=== PATIENT | female | born 1995 | race Caucasian/White ===

== ENCOUNTER → 2017-10-26 15:11 | Outpatient (CLI) | payer OTHER, SELFPAY ==
[2017-10-28 14:28] LABS: HPV Reflexed? NOT INDICATED
== END ==
PROVIDERS: Family Provider Family Medicine; PCP Family Medicine; Visit Provider Nurse Practitioner Women's Health
DX: N89.8 Other specified noninflammatory disorders of vagina (principal); Z12.4 Encounter for screening for malignant neoplasm of cervix
CPT/HCPCS: 87070; 87077; 87205; 88175; G0145

== ENCOUNTER → 2017-11-26 09:02 | Outpatient (CLI) | payer OTHER, SELFPAY ==
--- NOTE | 2017-11-26 09:03 | US_ITS ---
STUDY: ULTRASOUND OF THE FEMALE PELVIS - COMPLETE REASON FOR EXAM: Female, 22 years old. Irregular periods LMP: 10/28/2017 TECHNIQUE: Transabdominal and Transvaginal TECHNICAL QUALITY: Adequate. COMPARISON: None. FINDINGS: The uterus is anteverted and is in a midline position. The uterus measures 7.6 x 4.8 x 4.9 cm. Normal uterine cervix. The endometrium measures 6.9 mm in thickness, and is hyperechoic. There is no demonstrated endometrial mass. Within the endometrial cavity at the level of the uterine fundus there is a 5.7 x 3.1 x 2.3 mm well-circumscribed round anechoic focus. The right ovary is visualized. The right ovary measures 3.2 x 2.4 x 2.0 cm. There is no right ovarian cyst or ovarian mass. There is no visualized right adnexal mass or complex lesion. There is normal arterial and normal venous vascularity. The left ovary is visualized. The left ovary measures 3.7 x 2.4 x 2.0 cm. There is no left ovarian cyst or ovarian mass. There is a 4.5 x 3.8 x 2.8 mm well-circumscribed echogenic rounded focus within the left ovary which may reflect underlying calcification. Is normal arterial and normal venous vascularity. There is minimal fluid in the cul-de-sac. Polycystic ovary disease: No. US/Pelvic (Non ) IMPRESSION: Cystic focus within the endometrial cavity which may reflect an underlying gestational sac or possible endometrial cyst. Electronically Signed: Sherley Hanley MD at 23:15 EDT Tel , Service support ,
--- NOTE | 2017-11-26 09:03 | US_ITS ---
STUDY: ULTRASOUND OF THE FEMALE PELVIS - COMPLETE REASON FOR EXAM: Female, 22 years old. Irregular periods LMP: 10/28/2017 TECHNIQUE: Transabdominal and Transvaginal TECHNICAL QUALITY: Adequate. COMPARISON: None. FINDINGS: The uterus is anteverted and is in a midline position. The uterus measures 7.6 x 4.8 x 4.9 cm. Normal uterine cervix. The endometrium measures 6.9 mm in thickness, and is hyperechoic. There is no demonstrated endometrial mass. Within the endometrial cavity at the level of the uterine fundus there is a 5.7 x 3.1 x 2.3 mm well-circumscribed round anechoic focus. The right ovary is visualized. The right ovary measures 3.2 x 2.4 x 2.0 cm. There is no right ovarian cyst or ovarian mass. There is no visualized right adnexal mass or complex lesion. There is normal arterial and normal venous vascularity. The left ovary is visualized. The left ovary measures 3.7 x 2.4 x 2.0 cm. There is no left ovarian cyst or ovarian mass. There is a 4.5 x 3.8 x 2.8 mm well-circumscribed echogenic rounded focus within the left ovary which may reflect underlying calcification. Is normal arterial and normal venous vascularity. There is minimal fluid in the cul-de-sac. Polycystic ovary disease: No. US/Transvaginal Non- IMPRESSION: Cystic focus within the endometrial cavity which may reflect an underlying gestational sac or possible endometrial cyst. Electronically Signed: Sherley Hanley MD at 23:15 EDT Tel , Service support ,
== END ==
LOC: US 09:02
PROVIDERS: Family Provider Family Medicine; PCP Family Medicine; Visit Provider Nurse Practitioner Women's Health
DX: N92.6 Irregular menstruation, unspecified (principal)
CPT/HCPCS: 76830; 76856; 93976

== ENCOUNTER → 2018-08-07 17:47 | Outpatient (CLI) | payer OTHER, SELFPAY ==
[2018-08-07 14:33] VITALS: BMI 30.9
[2018-08-07 22:48] LABS: Chlamydia Trachomatis by PCR Negative (Negative); Neisserai gonorrhoeae by PCR Negative (Negative); Probe Check PASS; Sample Adequacy Control PASS; Specimen Processing Control PASS
== END ==
PROVIDERS: Family Provider Family Medicine; PCP Family Medicine; Referring Provider Nurse Practitioner Women's Health; Visit Provider Nurse Practitioner Women's Health
DX: Z34.90 Encounter for supervision of normal pregnancy, unspecified, unspecified trimester (principal)
CPT/HCPCS: 87086; 87088; 87491; 87591

== ENCOUNTER → 2018-09-01 10:10 | Outpatient (CLI) | payer OTHER, SELFPAY ==
[2018-08-07 14:33] VITALS: BMI 30.9
[2018-09-01 12:29] LABS: Absolute Lymphocyte Count 2.42 X10^3/ul (0.83-4.51); Absolute Neutrophil Count 5.8 X10^3/uL (2.0-7.7); Basophil# 0.02 X10^3/uL; Basophil% 0.2 % (0-1); Eosinophil# 0.15 X10^3/uL; Eosinophils% 1.7 % (0-5); Hematocrit 39.5 % (37-47); Hemoglobin 13.6 g/dl (12.0-15.0); Lymphocyte # 2.42 X10^3/ul (4.0); Lymphocyte % 26.7 % (19-41); Mean Corp Hgb Conc 34.4 g/gl (32-36); Mean Corpuscular Hgb 31.5 pg (27.0-32.0); Mean Corpuscular Volume 91.4 fL (81-99); Mean Platelet Vol. 10.1 fl (6.2-12.0); Monocyte% 6.6 % (0-10); Neutrophil # 5.84 X10^3/uL (2.7-7.7); Neutrophil % 64.5 % (47-70); Platelet Count 284 K/mm3 (150-450); RBC Distribution Width CV 12.8 % (11.6-14.6); RBC Distribution Width SD 42.2 fl (35.1-43.9); Red Blood Count 4.32 M/mm3 (4.2-5.4); White Blood Count 9.1 K/mm3 (4.4-11.0)
[2018-09-01 12:37] LABS: POSITIVE COUNT NO; POSITIVE DIFFERENTIAL NO; POSITIVE MORPHOLOGY NO
[2018-09-01 14:52] LABS: HIV - WCH Non-Reactive (Nonreactive); Rubella IgG 48.5 IU/mL
[2018-09-03 10:02] LABS: HEPATITIS B SURFACE AG Negative (Negative)
[2018-09-08 01:31] LABS: Rapid Plasmin Reagin (RPR) NONREACTIVE (NONREACTIVE)
== END ==
PROVIDERS: Family Provider Family Medicine; PCP Family Medicine; Referring Provider Nurse Practitioner Women's Health; Visit Provider Nurse Practitioner Women's Health
DX: Z34.90 Encounter for supervision of normal pregnancy, unspecified, unspecified trimester (principal)
CPT/HCPCS: 85025; 86592; 86703; 86762; 86850; 86900; 87340

== ENCOUNTER → 2018-10-13 | Outpatient (CLI) | payer OTHER, SELFPAY ==
[2018-10-13 14:36] VITALS: BMI 30.9
== END | disposition home or self-care (01) ==
PROVIDERS: Family Provider Family Medicine; PCP Family Medicine; Referring Provider Obstetrics & Gynecology; Visit Provider Obstetrics & Gynecology
DX: R10.2 Pelvic and perineal pain (principal)
CPT/HCPCS: 87086; 87088

== ENCOUNTER → 2019-02-05 | Outpatient (CLI) | payer OTHER, SELFPAY ==
[2019-01-23 08:38] VITALS: BMI 30.9
--- NOTE | 2019-02-05 07:59 | US_ITS ---
STUDY: SECOND AND THIRD TRIMESTER OBSTETRICAL ULTRASOUND REASON FOR EXAM: Female, 23 years old. Routine survey. LMP: June 20, 2018. TECHNIQUE: Transabdominal TECHNICAL QUALITY: Adequate. PRIOR ULTRASOUND: None. FINDINGS: There is a single intrauterine fetus. The fetus is in a cephalic presentation. There is demonstrated cardiac activity with a heart rate of 142 bpm. There is a normal amniotic fluid volume. The largest amniotic fluid pocket measures 4.2 cm. The amniotic fluid index (RANJIT) is 13.7 cm. The placenta is posterior in location and is not low lying. There are Grade 1 placental changes. The cervix measures 4.2 cm in length. The bilateral adnexal regions are normal. BIOMETRY: BPD: 8.12 cm: 32 weeks, 5 days HC: 30.49 cm: 34 weeks, 0 days AC: 28.61 cm: 32 weeks, 5 days FL: 6.31 cm: 32 weeks, 5 days CI: 77% FL/BPD: 78% FL/HC: FL/AC: 22% HC/AC: 1.07 age by current US: 33 weeks, 1 days. HEYDI by current US: March 25, 2019. Estimated weight: 2045 grams, +/- 2099 grams, 38 %. Age by LMP: 32 weeks, 6 days. HEYDI by LMP: March 27, 2019. US/OB Limited With Biometrics IMPRESSION: Single live intrauterine gestation with a mean gestational age of 33 weeks and 1 day. Electronically Signed: Benoit Boyd, at 14:24 EDT , Service support ,
== END | disposition home or self-care (01) ==
PROVIDERS: Family Provider Family Medicine; PCP Family Medicine; Referring Provider Obstetrics & Gynecology; Visit Provider Obstetrics & Gynecology
DX: O24.419 Gestational diabetes mellitus in pregnancy, unspecified control (principal); Z3A.00 Weeks of gestation of pregnancy not specified
CPT/HCPCS: 76816

== ENCOUNTER → 2019-02-26 | Outpatient (CLI) | payer OTHER, SELFPAY ==
[2019-02-06 08:37] VITALS: BMI 30.9
[2019-02-20 09:15] VITALS: BMI 30.9
--- NOTE | 2019-02-26 09:05 | US_ITS ---
STUDY: SECOND AND THIRD TRIMESTER OBSTETRICAL ULTRASOUND REASON FOR EXAM: Female, 23 years old. Routine survey. LMP: June 20, 2018. TECHNIQUE: Transabdominal TECHNICAL QUALITY: Adequate. PRIOR ULTRASOUND: Comparison is made with prior study dated February 05, 2019. FINDINGS: There is a single intrauterine fetus. The fetus is in a cephalic presentation. There is demonstrated cardiac activity with a heart rate of 147 bpm. There is a normal amniotic fluid volume. The largest amniotic fluid pocket measures 3.2 cm. The amniotic fluid index (RANJIT) is 11.73 cm. The placenta is posterior in location and is not low lying. There are Grade 1 placental changes. The cervix measures 3.7 cm in length. The bilateral adnexal regions are normal. BIOMETRY: BPD: 8.65 cm: 35 weeks, 0 days HC: 31.32 cm: 30 weeks, 1 days AC: 31.64 cm: 35 weeks, 4 days FL: 6.79 cm: 35 weeks, 0 days CI: 82% FL/BPD: 78% FL/HC: FL/AC: 21% HC/AC: 0.99 age by current US: 35 weeks, 2 days. HEYDI by current US: March 31, 2019. Estimated weight: 2635 grams, +/- 385 grams, 34 %. age by prior US: 37 weeks, 1 days. HEYDI by prior US: March 25, 2019. Age by LMP: 35 weeks, 6 days. HEYDI by LMP: March 27, 2019. Low-level echoes are seen within the stomach. US/OB Limited With Biometrics IMPRESSION: Single live intrauterine gestation with a mean gestational age of 36 weeks and 1 day. The measurements obtained today fall within the normal expected range. Electronically Signed: Benoit Boyd, at 15:34 EDT , Service support ,
== END | disposition home or self-care (01) ==
PROVIDERS: Family Provider Family Medicine; PCP Family Medicine; Referring Provider Obstetrics & Gynecology; Visit Provider Obstetrics & Gynecology
DX: O24.419 Gestational diabetes mellitus in pregnancy, unspecified control (principal); Z3A.00 Weeks of gestation of pregnancy not specified
CPT/HCPCS: 76816

== ENCOUNTER → 2019-02-27 | Outpatient (CLI) | payer OTHER, SELFPAY ==
[2019-02-27 09:27] VITALS: BMI 30.9
== END | disposition home or self-care (01) ==
LOC: LABSPEC 13:18
PROVIDERS: Family Provider Family Medicine; PCP Family Medicine; Referring Provider Obstetrics & Gynecology; Visit Provider Obstetrics & Gynecology
DX: Z34.93 Encounter for supervision of normal pregnancy, unspecified, third trimester (principal); Z3A.36 36 weeks gestation of pregnancy
CPT/HCPCS: 87081

== ENCOUNTER → 2019-03-15 | Outpatient (CLI) | payer OTHER, SELFPAY ==
[2019-03-13 08:39] VITALS: BMI 32.9
--- NOTE | 2019-03-15 14:38 | US_ITS ---
STUDY: SECOND AND THIRD TRIMESTER OBSTETRICAL ULTRASOUND - LIMITED REASON FOR EXAM: Female, 23 years old. Routine survey. LMP: June 20, 2018. PRIOR ULTRASOUND: Comparison is made with prior study dated February 26, 2019. TECHNIQUE: Transabdominal TECHNICAL QUALITY: Adequate. FINDINGS: There is a single intrauterine fetus. The fetus is in a cephalic presentation. There is demonstrated cardiac activity with a heart rate of 135 bpm. There is a normal amniotic fluid volume. The largest amniotic fluid pocket measures 4.7 cm x 3.8 cm. The amniotic fluid index (RANJIT) is 12.57 cm. The placenta is posterior in location and is not low lying. There are Grade 1 placental changes. The cervix measures 3.25 cm in length. BIOMETRY: BPD: 8.91 cm: 36 weeks, 1 days HC: 32.34 cm: 36 weeks, 4 days AC: 30.78 cm: 34 weeks, 6 days FL: 11.24 cm: 37 weeks, 3 days Age by LMP: 38 weeks, 2 days. HEYDI by LMP: March 27, 2019. age by prior US: 38 weeks, 4 days. HEYDI by prior US: March 25, 2019. age by current US: 36 weeks, 1 days. HEYDI by current US: April 11, 2019. Estimated weight: 2724 grams, +/- 398 grams, 9 percentile. Measurements of the abdominal circumference are questionable. I suggest the patient return for reassessment of the abdominal circumference. Echogenic material is seen within the stomach. US/OB Limited With Biometrics IMPRESSION: Repeat measurement of the abdominal circumference is recommended. Echogenic material seen within the stomach. Electronically Signed: Benoit Boyd, at 8:28 EDT , Service support ,
== END | disposition home or self-care (01) ==
LOC: US 14:22
PROVIDERS: Family Provider Family Medicine; PCP Family Medicine; Referring Provider Obstetrics & Gynecology; Visit Provider Obstetrics & Gynecology
DX: O66.0 Obstructed labor due to shoulder dystocia (principal); Z3A.00 Weeks of gestation of pregnancy not specified
CPT/HCPCS: 76816

== ENCOUNTER 2019-03-16 16:20 | Inpatient (IN) | payer OTHER, SELFPAY ==
[2018-12-26 08:31] VITALS: BMI 30.9
[2019-03-13 10:26] VITALS: BMI 30.9
[2019-03-16 16:37] VITALS: BMI 32.8
[2019-03-16] MEDS: Lactated Ringers 1,000 ML 50 ML IV (17:10)
[2019-03-16] MEDS: Lactated Ringers 500 ML 999 ML IV (17:18)
[2019-03-16 18:04] LABS: Absolute Lymphocyte Count 2.32 X10^3/uL (0.83-4.51); Absolute Neutrophil Count 9.4 X10^3/uL (2.0-7.7); Basophil# 0.02 X10^3/uL; Basophil% 0.2 % (0-1); Eosinophil# 0.11 X10^3/uL; Eosinophils% 0.9 % (0-5); Hematocrit 36.2 % (37-47); Hemoglobin 12.2 g/dL (12.0-15.0); Lymphocyte # 2.32 X10^3/ul (4.0); Mean Corp Hgb Conc 33.7 g/dL (32-36); Mean Corpuscular Hgb 30.4 pg (27.0-32.0); Mean Corpuscular Volume 90.3 fL (81-99); Mean Platelet Vol. 9.6 fl (6.2-12.0); Monocyte% 7.8 % (0-10); NRBC Flagged by Analyzer 0 % (0-5); Neutrophil # 9.39 X10^3/uL (2.7-7.7); Neutrophil % 72.6 % (47-70); Platelet Count 279 K/mm3 (150-450); RBC Distribution Width CV 13.5 % (11.6-14.6); RBC Distribution Width SD 44.4 fl (35.1-43.9); Red Blood Count 4.01 M/mm3 (4.2-5.4); White Blood Count 12.9 K/mm3 (4.4-11.0)
[2019-03-16 18:21] LABS: Bedside Glucose 89 mg/dL (70-110)
[2019-03-16 18:21] LABS: Bedside Glucose 102 mg/dL (70-110)
[2019-03-16] MEDS: Oxytocin 30 units/NS 500 ml 30 UNITS/500 ML IV.SOLN 334 UNITS IV (20:05)
--- NOTE | 2019-03-16 20:37 | PCM.HP.OB ---
- Problem List (1) SROM (spontaneous rupture of membranes) Status: Acute (2) Shoulder dystocia during labor and delivery Status: Acute Comment: plan primary at 39 weeks 03/20 at noon if EFW is similar clinically to previous SD infant. will decide base on cervical exam and EFW. (3) Gestational diabetes mellitus Status: Acute Qualifiers: Gestational diabetes mellitus control: diet-controlled Trimester: third trimester Qualified Code(s): O24.410 - Gestational diabetes mellitus in , diet controlled Comment: checking BS QID, nutrition consult, 36 week US (4) Status: Acute Qualifiers: Weeks of gestation: 37 weeks Qualified Code(s): Z3A.37 - 37 weeks gestation of Comment: genetic NTD and carrier screenign declined. nl anatomy us. (5) Supervision of high risk , antepartum Status: Acute Comment: PRR HEYDI: 03/27/19 girl Rocio PC:Baldomero Spouse: Gilles (6) History of pre-eclampsia in prior , currently Status: Acute Comment: start daily ASA at 12 weeks/encouraged (7) Acid reflux Status: Acute Qualifiers: Esophagitis presence: without esophagitis Qualified Code(s): K21.9 - Gastro-esophageal reflux disease without esophagitis History Date of Admission: 03/16/19 Final HEYDI: 03/16/19 Gestational age: 40 Weeks and 0 Days History of this : This is a 23 year-old, at 38 weeks gestational age presents IAL SROM clear fluid. She has had well-controlled GDM A1 diabetes and estimated weight today with maternal- medicine was 6 pounds 7 ounces some echogenic material in the stomach seen but no gross masses or abnormalities. MFM agreed with recommendation for trial of labor after patient was adequately counseled regarding the risk benefits and alternatives of primary versus trial of labor with a history of shoulder dystocia. This infant has an estimated weight that is 2-1/2 pounds less than her first child. Medical History: Medical History (Last Reviewed 03/13/19 @ 08:39 by Rupa Kaur) Acid reflux (Acute) K21.9 Peptic ulcer K27.9 Surgical History: Surgical History (Last Reviewed 03/13/19 @ 08:39 by Rupa Kaur) History of tonsillectomy Z90.89 teeth extracted Allergies oxycodone [From Percocet] Adverse Reaction (Verified 03/13/19 08:39) Upset Stomach Home Medications: Home Medications docosahexanoic acid 200 mg capsule 200 mg PO DAILY cap 08/07/18 Blood Sugar Diagnostic [Blood Glucose Test] See Rx Instructions .ROUTE .MEDSUPPLY 03/16/19 Blood-Glucose Meter [Contour] See Rx Instructions .ROUTE .MEDSUPPLY 03/16/19 Vit,Calc76/Iron/Folic [Pnv 29-1 Tablet] 1 ea PO DAILY 03/16/19 Smoking Status: Current every day smoker Alcohol: None Number of Fetus(es): 1 NST - FHR Rate Baby A Baseline: 140 Variability:: Moderate Accelerations:: 15 x 15 Decelerations:: None NST Reactive:: Yes FHR Category:: Category I Uterine Activity:: q2-3 History Past Pregnancies: Past Pregnancies previous term shoulder dystocia no sequelae male gdma1 8 lbs 14 ounces Labs: Mom's Labs & Results 03/16/19 03/16/19 03/16/19 17:09 17:10 17:10 WBC 12.9 H RBC 4.01 L Hgb 12.2 Hct 36.2 L MCV 90.3 MCH 30.4 MCHC 33.7 RDW Std Deviation 44.4 H RDW Coeff of Yoan 13.5 Plt Count 279 MPV 9.6 Immature Gran % (Auto) 0.500 Neut % (Auto) 72.6 H Lymph % (Auto) 18.0 L Boundary % (Auto) 7.8 Eos % (Auto) 0.9 Baso % (Auto) 0.2 Absolute Neuts (auto) 9.4 H Absolute Lymphs (auto) 2.32 Nucleated RBC % 0 POC Glucose 89 Blood Type O POSITIVE Antibody Screen NEGATIVE 03/16/19 18:11 WBC RBC Hgb Hct MCV MCH MCHC RDW Std Deviation RDW Coeff of Yoan Plt Count MPV Immature Gran % (Auto) Neut % (Auto) Lymph % (Auto) Boundary % (Auto) Eos % (Auto) Baso % (Auto) Absolute Neuts (auto) Absolute Lymphs (auto) Nucleated RBC % POC Glucose 102 Blood Type Antibody Screen Course Did the patient receive Yes care? Labs Blood Type: O RH: POSITIVE RPR/VDRL/Syphilis Nonreactive Rubella status Immune HbSAg Negative Date Done: 09/01/18 Chlamydia Negative Gonorrhea Negative HIV/AIDS Non-Reactive Group B Strep: Negative Current Obstetrical History Gestational Diabetes Yes Incompetent Cervix No Infertility No IUGR No Macrosomia No Hypertension/Pre-eclampsia No Placenta Previa/Abruption No PTL/PROM No Uterine anomaly No Oligohydramnios No Polyhydramnios No Multiple gestation No Past Medical History Asthma No Diabetes No Hypertension No Heart disease No Mitral valve prolapse No Neurologic/Seizure disorder/ No Migraines Kidney disease No Liver disease No Varicosities No Clotting disorders/Hx of DVT No Thyroid Dysfunction No Other medical diseases No Psychiatric disorders No Major trauma No Abnormal PAP smear No Sleep apnea No Mammogram in the last 2 years No Social History Marital Status: Alleged father Gilles Hx Smoking Yes Smoking Status Current every day smoker Expected Delivery Method: Spontaneous Vaginal Review of Systems Constitutional: Denies: Fever, Malaise Eyes: Denies: Blurred vision, Vision Change HEENT: Denies: Head Aches, Visual Changes Cardiovascular: Denies: Chest Pain, Palpitations Respiratory: Denies: Cough, Shortness of Breath, Wheezing Gastrointestinal: Denies: Abdominal Pain, Diarrhea, Nausea, Vomiting Genitourinary: Denies: Dysuria, Hematuria Musculoskeletal: Denies: Joint Pain, Muscle pain Skin: Denies: Lesions, Rash Neurological: Denies: Blurred vision, Focal weakness, Headaches Psychiatric: Denies: Anxiety, Depression Endocrine: Denies: Heat/ Cold Intolerance Hematologic/ Lymphatic: Denies: Easy Bruising, Easy Bleeding Physical Exam General: Alert, Cooperative, No apparent distress HEENT: Atraumatic, Normocephalic. Negative for: Thyromegaly, Lymphadenopathy Cardiovascular: Regular rate Lungs: Normal air movement Abdomen: Soft, Non Tender, Gravid Neurological: Deep Tendon Reflexes 2+/4 and Symmetrical, Neuro grossly intact. Negative for: Clonus ADULT EDUCATION PROFESSIONAL: Normal external genitalia. Negative for: Vulvar lesions Estimated gestational size: Appropriate for gestational size Presentation: Cephalic Assessment/Plan All Active Problems (Last Reviewed 03/13/19 @ 08:39 by Rupa Kaur) SROM (spontaneous rupture of membranes) (Acute) Shoulder dystocia during labor and delivery (Acute) Gestational diabetes mellitus (Acute) (Acute) Supervision of high risk , antepartum (Acute) History of pre-eclampsia in prior , currently (Acute) Acid reflux (Acute) History of gestational diabetes in prior , currently (Resolved) This is a 23 year-old, , at 38 weeks gestational age presents IAL. ial srom clear fluid epi if desired patient counseled and wishes to proceed with trial of labor
--- NOTE | 2019-03-16 20:38 | PCM.OPRPT ---
Problem List (1) Acid reflux Status: Acute Qualifiers: Esophagitis presence: without esophagitis Qualified Code(s): K21.9 - Gastro-esophageal reflux disease without esophagitis (2) Gestational diabetes mellitus Status: Acute Qualifiers: Gestational diabetes mellitus control: diet-controlled Trimester: third trimester Qualified Code(s): O24.410 - Gestational diabetes mellitus in , diet controlled Comment: checking BS QID, nutrition consult, 36 week US (3) History of pre-eclampsia in prior , currently Status: Acute Comment: start daily ASA at 12 weeks/encouraged (4) Status: Acute Qualifiers: Weeks of gestation: 37 weeks Qualified Code(s): Z3A.37 - 37 weeks gestation of Comment: genetic NTD and carrier screenign declined. nl anatomy us. (5) Shoulder dystocia during labor and delivery Status: Acute Comment: plan primary at 39 weeks 03/20 at noon if EFW is similar clinically to previous SD infant. will decide base on cervical exam and EFW. (6) Supervision of high risk , antepartum Status: Acute Comment: PRR HEYDI: 03/27/19 girl Rocio PC:Baldomero Spouse: Gilles Report of Operation Date of Procedure: 03/16/19 Pre-Operative Diagnosis: ial srom Post-Operative Diagnosis: same Surgery/Procedure Performed:: Vaginal Delivery Maternal Presentation: Active Labor ial 38 weeks Amniotic Membrane Rupture Type: Spontaneous at home Amniotic Fluid Description: Clear Final HEYDI: 03/27/19 Gestational age: 38 Weeks and 3 Days Date of Procedure: 03/16/19 Pre-Operative Diagnosis: gdma1 Post-Operative Diagnosis: same Surgery/ Procedure Performed: Spontaneous Vaginal Delivery Type of Anesthesia: None Description of Procedure: Patient proceeded to complete dilation with no anesthesia and delivered the head in the JAGUAR presentation with a loose nuchal cord x1 easily reduced over the infant's head in the anterior and posterior shoulders easily delivered followed by the rest the infant and was placed on the maternal abdomen clear delayed cord clamping was employed and placenta delivered spontaneously immediately following was to be intact with three-vessel cord with an abnormal implantation into the placenta within the middle with some spindly vessels coming off the placenta itself was noted to be smaller in size overall. EBL 100 cc no lacerations noted Presentation: JAGUAR Placental Delivery Description: Spontaneous Placenta Disposition: [facility] Cord Vessel Description: 3 Vessels Nuchal Cord Compression: Without compression Cord Entanglement: Around neck x 1, loose Estimated Blood Loss: 100 Infant A gender: Female Episiotomy Description: None Laceration: None Medications given after delivery: IV Pitocin Complications: None Multi Select Codes - Urinary/Genital Urinary/Genital CPT Codes: 16967 Vaginal Delivery [facility]
[2019-03-16] MEDS: Naproxen 250 MG Tablet 500 MG PO (21:08)
[2019-03-16 21:11] LABS: Bedside Glucose 100 mg/dL (70-110)
[2019-03-16 21:11] LABS: Bedside Glucose 86 mg/dL (70-110)
[2019-03-16] MEDS: 0.9% Saline Lock 10 ML Syringe IV (22:45)
[2019-03-17] VITALS (7 sets, daily range): BP systolic 114–123; BP diastolic 57–73; PULSE 70–86; RESP 16–18; TEMP 36.2–36.9; O2SAT 98
[2019-03-17 05:55] LABS: Bedside Glucose 85 mg/dL (70-110)
[2019-03-17] MEDS: Naproxen 250 MG Tablet 500 MG PO ×2 (07:44→15:56)
--- NOTE | 2019-03-17 08:45 | PCM.PN.OB ---
Patient Problems: Active and Suspected Problems (Last Reviewed 03/13/19 @ 08:39 by Rupa Kaur) SROM (spontaneous rupture of membranes) (Acute) Subjective: doing well no complaints pain controlled no CP SOB N V ambulating well tolerating po lochia moderate, going well - Physical Exam General: Alert, Oriented x3 Vital Signs Temp Pulse Resp BP Pulse Ox 98.5 F 76 16 114/68 98 03/17/19 07:36 03/17/19 07:36 03/17/19 07:36 03/17/19 07:36 03/17/19 07:36 Oxygen Delivery Method Room Air Weight: 191 lb 2.252 oz Body Mass Index (BMI) 32.8 Intake and Output for Last 24 Hours 03/15/19 03/16/19 03/17/19 23:59 23:59 23:59 Intake Total 1269.17 / 1269.17 Output Total 1000 / 1000 Balance 269.17 / 269.17 Laboratory Tests Past 24 Hrs 03/16/19 03/16/19 17:10 17:10 WBC 12.9 H RBC 4.01 L Hgb 12.2 Hct 36.2 L MCV 90.3 MCH 30.4 MCHC 33.7 RDW Std Deviation 44.4 H RDW Coeff of Yoan 13.5 Plt Count 279 MPV 9.6 Immature Gran % (Auto) 0.500 Neut % (Auto) 72.6 H Lymph % (Auto) 18.0 L Hernando % (Auto) 7.8 Eos % (Auto) 0.9 Baso % (Auto) 0.2 Absolute Neuts (auto) 9.4 H Absolute Lymphs (auto) 2.32 Nucleated RBC % 0 Blood Type O POSITIVE Antibody Screen NEGATIVE POC Glucose 03/17/19 03/16/19 03/16/19 05:51 21:02 19:25 POC Glucose 85 100 86 03/16/19 03/16/19 18:11 17:09 POC Glucose 102 89 Medical Necessity - Tobacco Use Smoking Status: Current every day smoker Assessment/Plan All Active Problems (Last Reviewed 03/13/19 @ 08:39 by Rupa Kaur) SROM (spontaneous rupture of membranes) (Acute) Shoulder dystocia during labor and delivery (Acute) Gestational diabetes mellitus (Acute) (Acute) Supervision of high risk , antepartum (Acute) History of pre-eclampsia in prior , currently (Acute) Acid reflux (Acute) History of gestational diabetes in prior , currently (Resolved) s/p PPD # 1 1. routine post delivery care 2. breast feeding- support given 3. rh positive 4. rubella immune diabetes- check 2 hour gtt at 6 weeks
--- NOTE | 2019-03-17 08:46 | DCINST_ITS ---
Discharge Diet: No Restrictions Discharge Activity: Return to Normal Activity, May not drive while taking narcotic pain medications., May Shower May resume sexual activity in: 4-6 weeks Call your doctor if your incision/area has: Continuous Slow Oozing, Sudden Increased Bleeding, Increased Pain/ Swelling, Increased Redness, Foul Smelling Discharge Additional Instructions: If you experience any of the following, contact your healthcare provider. * Bleeding that soaks a pad every hour for 2 hours * Fever 100.4 or higher * Unrelieved incision or abdominal pain * Swelling, redness, discharge or bleeding from your incision or episiotomy site * Your incision begins to separate * Problems urinating (including inability to urinate or burning while urinating). * Visual changes * Severe headache * Flu-like symptoms * Pain or redness in one of both of your breasts * Pain, warmth, tenderness or swelling in your legs, especially the calf area * Frequent nausea and vomiting * Symptoms of depression or anxiety If you experience any of the following, call 911 or go to the nearest Emergency Room. * Chest pain * Problems breathing * Seizure activity * Partial or complete paralysis of a body part, slurred speech, weakness or drooping of the face, or a sudden inability to walk or hold your balance Allergies/Adverse Reactions: Allergies oxycodone [From Percocet] Adverse Reaction (Verified 03/13/19 08:39) Upset Stomach Medications to take at Discharge docosahexanoic acid 200 mg capsule 200 mg PO DAILY cap 08/07/18 Blood Sugar Diagnostic [Blood Glucose Test] See Rx Instructions .ROUTE .MEDSUPPLY 03/16/19 Blood-Glucose Meter [Contour] See Rx Instructions .ROUTE .MEDSUPPLY 03/16/19 Vit,Calc76/Iron/Folic [Pnv 29-1 Tablet] 1 ea PO DAILY 03/16/19 Please Follow Up With: Olivia Zarco MD - [phone] When: Call to make an appointment with your doctor in 6 weeks. If you had elevated Blood pressure or 4th degree laceration you will need to be seen in 2 weeks. Primary Care Physician: Chris Barraza MD [Primary Care Provider] - Test Results: Test results from this visit will be discussed in further detail at your follow- up appointment, if applicable.
[2019-03-17] MEDS: Acetaminophen 500 MG Tablet 1000 MG PO (12:49)
== END 2019-03-17 21:50 | disposition home or self-care (01) | DRG 807 ==
PROVIDERS: Admitting Provider Obstetrics & Gynecology; Family Provider Family Medicine; PCP Family Medicine; Referring Provider Obstetrics & Gynecology; Visit Provider Obstetrics & Gynecology
DX: O24.420 Gestational diabetes mellitus in childbirth, diet controlled (principal); Z37.0 Single live birth; O99.334 Smoking (tobacco) complicating childbirth; O69.81X0 Labor and delivery complicated by cord around neck, without compression, not applicable or unspecified; Z3A.38 38 weeks gestation of pregnancy
CPT/HCPCS: 59025; 59050; 82962; 85025; 86850; 86900; 86901; 99218; J7120; A4216; G0378

== ENCOUNTER → 2020-01-23 | Outpatient (CLI) | payer OTHER, SELFPAY ==
[2020-01-15 10:31] VITALS: BMI 32.8
--- NOTE | 2020-01-23 14:03 | US_ITS ---
STUDY: ABDOMINAL ULTRASOUND - RIGHT UPPER QUADRANT REASON FOR VISIT: Female, 24 years old RUQ PAIN -- R/O CHOLECYSTITIS TECHNIQUE: Ultrasound evaluation of the right upper quadrant was performed with real-time and static palacios-scale imaging. TECHNICAL QUALITY: Adequate. COMPARISON: None. FINDINGS: Liver: The liver measures 14.6 cm. There is normal echogenicity of the liver. The bile ducts are within normal limits. There is hepatic color flow. The direction of portal flow is hepatopetal. There is no demonstrated mass lesion. Gallbladder: Normal distended gallbladder. The gallbladder wall measures 2.0 mm. There is a negative sonographic Luke''s sign. There is no pericholecystic fluid. There are no gallstones. Common Bile Duct (C.B.D.): The common bile duct measures 3.1 mm. Pancreas: Normal size of the head, body and tail of the pancreas. There is normal echogenicity of the pancreas. There is no demonstrated pancreatic mass or cyst. Right Kidney: Normal size of the right kidney. The right kidney measures 12.0 x 5.0 x 4.9 cm. Normal renal cortex. The right cortex measures 1.3 cm. There is no demonstrated renal mass or cyst. There is no right hydronephrosis. US/Abdomen Limited IMPRESSION: No suspicious sonographic findings Electronically Signed: Carlos A Calix MD at 14:47 EDT , Service support ,
== END | disposition home or self-care (01) ==
PROVIDERS: PCP Family Medicine; Referring Provider Nurse Practitioner; Visit Provider Nurse Practitioner
DX: R10.11 Right upper quadrant pain (principal)
CPT/HCPCS: 76705

== ENCOUNTER → 2020-12-03 08:09 | Outpatient (CLI) | payer MEDICAID, SELFPAY ==
[2020-01-15 10:31] VITALS: BMI 32.8
[2020-12-03 08:15] VITALS: BP 122/76; PULSE 97; RESP 16; TEMP 36.1; O2SAT 100
[2020-12-03] MEDS: Cosyntropin 0.25 MG Vial IM (08:47)
== END ==
PROVIDERS: PCP Family Medicine; Referring Provider Internal Medicine; Visit Provider Internal Medicine
DX: I95.9 Hypotension, unspecified (principal); R11.0 Nausea
CPT/HCPCS: 82533; 96372; J0834

== ENCOUNTER 2021-07-16 12:56 | Outpatient (CLI) | payer MEDICAID, SELFPAY ==
--- NOTE | 2021-07-16 13:17 | VDLE_ITS ---
Reason For Study: Pain RIGHT LEFT CFV is compressible, spontaneous, phasic, GSV is normal. competent and demonstrates normal CFV is compressible, spontaneous, phasic, augmentation. competent, and demonstrates normal Procedure augmentation. This is a venous duplex using B-mode, color FV is compressible, spontaneous, phasic, flow and spectral Doppler. competent and demonstrates normal Exam performed in department. augmentation. A preliminary report was called and/or faxed POP V is compressible, spontaneous, phasic, to Alber. competent and demonstrates normal augmentation. T/P Trunk is compressible. PTV is compressible. LT PerV is compressible. VL/Venous Duplex US, Unilateral Interpretation Summary Deep veins of the left lower extremity are patent and compressible segmentally. There is no evidence of left lower extremity deep vein thrombosis. Valvular competence appears intac t within the proximal deep venous system on the left . The left great saphenous vein appears patent a nd compressible segmentally. Ordering Physician: Anna Campo Referring Physician: Chris Barraza Performed By: Mili Meneses RVT
[2021-07-16 13:34] LABS: D-Dimer Quantitative (DVT/PE) <= 0.27 FEU/ug/m (0.27-0.49)
== END 2021-07-16 23:59 | disposition short-term general hospital (02) ==
PROVIDERS: PCP Family Medicine; Visit Provider Internal Medicine
DX: M79.662 Pain in left lower leg (principal); M79.89 Other specified soft tissue disorders; R06.02 Shortness of breath
CPT/HCPCS: 85379; 93971

== ENCOUNTER 2021-09-07 12:35 | Outpatient (CLI) | payer MEDICAID, SELFPAY | END 2021-09-07 23:59 | disposition home or self-care (01) | LOC: CVS 12:36 | PROVIDERS: PCP Family Medicine; Visit Provider Internal Medicine | DX: R00.0 Tachycardia, unspecified (principal) | CPT/HCPCS: 93225; 93226 ==

== ENCOUNTER 2021-09-28 12:03 | Outpatient (CLI) | payer MEDICAID, SELFPAY | END 2021-09-28 23:59 | disposition home or self-care (01) | LOC: SL 12:04 | PROVIDERS: PCP Family Medicine; Visit Provider Internal Medicine | DX: G47.10 Hypersomnia, unspecified (principal); R06.81 Apnea, not elsewhere classified; R40.0 Somnolence; R06.83 Snoring | CPT/HCPCS: 95801; 95806 ==

== ENCOUNTER → 2021-11-25 | Outpatient (CLI) | payer MEDICAID, SELFPAY ==
[2021-11-25 14:27] LABS: Absolute Lymphocyte Count 2.59 X10^3/uL (0.83-4.51); Basophil# 0.04 X10^3/uL; Basophil% 0.5 % (0-1); Eosinophils% 3.5 % (0-5); Hematocrit 41.2 % (37-47); Hemoglobin 14.2 g/dL (12.0-15.0); Lymphocyte # 2.59 X10^3/ul (0.83-4.51); Lymphocyte % 30.6 % (19-41); Mean Corp Hgb Conc 34.5 g/dL (32-36); Mean Corpuscular Volume 92.8 fL (81-99); Mean Platelet Vol. 9.6 fl (6.2-12.0); Monocyte# 0.53 X10^3/uL; Monocyte% 6.3 % (0-10); NRBC Flagged by Analyzer 0 % (0-5); Neutrophil # 4.97 X10^3/uL (2.7-7.7); Neutrophil % 58.7 % (47-70); Platelet Count 264 K/mm3 (150-450); RBC Distribution Width SD 41.3 fl (35.1-43.9); Red Blood Count 4.44 M/mm3 (4.2-5.4); White Blood Count 8.5 K/mm3 (4.4-11.0)
[2021-11-25 14:44] LABS: D-Dimer Quantitative (DVT/PE) < 0.27 FEU/ug/m (0.27-0.49)
[2021-11-25 14:55] LABS: ALB/GLOB Ratio 1.1 RATIO (0.9-2.4); AST(SGOT) 15 U/L (15-37); Alanine Aminotransfer ALT/SGPT 29 U/L (13-56); Albumin, Serum 4.1 g/dL (3.2-5.0); Alkaline Phosphatase 66 U/L (45-117); Anion Gap 6 (5-15); BUN 9 mg/dL (7-18); BUN/Creat Ratio 11.5 RATIO (10-20); Calcium,Total 9.1 mg/dL (8.5-10.1); Chloride 109 mmol/L (98-107); Creatinine, Serum 0.79 mg/dL (0.55-1.02); EST Glomerular Filtration Rate 93 mL/min (>60); Est Glom Filt Rate - Afr Amer 112 mL/min (>60); Globulin 3.6 g/dL (2.2-4.2); Glucose 92 mg/dL (74-106); Potassium 3.7 mmol/L (3.5-5.1); Protein, Total 7.7 g/dL (6.4-8.2); Sodium Level 142 mmol/L (136-145); Thyroid Stim Hormone (TSH) 0.71 uIU/mL (0.358-3.74)
== END | disposition home or self-care (01) ==
LOC: LABSPEC 14:14
PROVIDERS: PCP Family Medicine; Visit Provider Internal Medicine
DX: R06.02 Shortness of breath (principal)
CPT/HCPCS: 80053; 84443; 85025; 85379

== ENCOUNTER 2022-01-22 20:07 | Emergency (ER) | payer MEDICAID, SELFPAY ==
[2022-01-22 20:07] VITALS: BP 146/94; PULSE 129; RESP 16; TEMP 36.6; O2SAT 99; BMI 31.7
[2022-01-22 20:48] LABS: Absolute Lymphocyte Count 2.64 X10^3/uL (0.83-4.51); Absolute Neutrophil Count 10.7 X10^3/uL (2.0-7.7); Basophil# 0.05 X10^3/uL; Basophil% 0.3 % (0-1); Eosinophil# 0.27 X10^3/uL; Eosinophils% 1.8 % (0-5); Hematocrit 41.6 % (37-47); Hemoglobin 14.4 g/dL (12.0-15.0); Lymphocyte # 2.64 X10^3/ul (0.83-4.51); Lymphocyte % 17.7 % (19-41); Mean Corp Hgb Conc 34.6 g/dL (32-36); Mean Corpuscular Hgb 31.9 pg (27.0-32.0); Mean Corpuscular Volume 92.2 fL (81-99); Mean Platelet Vol. 9.6 fl (6.2-12.0); NRBC Flagged by Analyzer 0 % (0-5); Neutrophil # 10.71 X10^3/uL (2.7-7.7); Neutrophil % 71.9 % (47-70); Platelet Count 274 K/mm3 (150-450); RBC Distribution Width CV 12.4 % (11.6-14.6); Red Blood Count 4.51 M/mm3 (4.2-5.4); White Blood Count 14.9 K/mm3 (4.4-11.0)
[2022-01-22 21:05] LABS: Anion Gap 6 (5-15); BUN 9 mg/dL (7-18); BUN/Creat Ratio 11.7 RATIO (10-20); Calcium,Total 9.2 mg/dL (8.5-10.1); Chloride 105 mmol/L (98-107); Creatinine, Serum 0.77 mg/dL (0.55-1.02); EST Glomerular Filtration Rate 95 mL/min (>60); Est Glom Filt Rate - Afr Amer 115 mL/min (>60); Estimated Creatinine Clearance 93.93 ml/min; Glucose 98 mg/dL (74-106); Sodium Level 136 mmol/L (136-145)
[2022-01-22 21:26] LABS: Bacteria 0 SEEN /hpf (None Seen); Mucous, Urine 0 SEEN /hpf (<or=2+); Red Blood Cells-Urine 0 SEEN /hpf (0-5)
[2022-01-22] MEDS: 0.9% Normal Saline 1,000 ML 999 ML IV (21:40)
[2022-01-22] MEDS: Ondansetron 4 MG/2 ML Vial IV (21:40)
[2022-01-22 21:53] LABS: Color, Urine Yellow (Yellow); Glucose, Dipstick Normal (Normal); Ketone-Dipstick Negative (Negative); Leukocyte Esterase-Dipstick Negative /ul (Negative); Nitrite-Dipstick Negative (Negative); Occult Blood-Urine 25 /ul (Negative); Protein-Dipstick Negative (Negative); Urine Bilirubin Dipstick Negative (Negative); Urine Clarity Sl. Cloudy (Clear); Urine Urobilinogen Normal (Normal)
[2022-01-22 22:05] LABS: Squamous Epithelial Cells - UA 0-5 SEEN /hpf (5-10); White Blood Cells 0-5 SEEN /hpf (0-5)
[2022-01-22 22:57] LABS: Internal QC Validated? YES +Cl - CLEAR BKGD; Pregnancy, Serum, hCG Quali. NEGATIVE Negative
--- NOTE | 2022-01-22 23:06 | CT_ITS ---
STUDY: CT ABDOMEN AND PELVIS WITH CONTRAST ENHANCEMENT OF 2208 HOURS ON 01/22/2022 REASON FOR EXAM: 26-year-old female with right lower quadrant pain. RADIATION DOSAGE (If Supplied By Facility): CTDIvol = ( 12.65 ) mGy, DLP = ( 842.24 ) mGycm TECHNIQUE: Transaxial images were obtained from the dome of the diaphragm to the symphysis pubis without oral contrast. IV 100mL Isovue-370 was administered. Sagittal and coronal images were reconstructed. Individualized dose optimization techniques were used for this CT. COMPARISON: 03/28/2016, which demonstrated a small left ovarian cyst. FINDINGS: The visualized lung bases are unremarkable. The visualized portions of the heart are within normal limits. Normal liver. Normal gallbladder and extrahepatic biliary system; no cholecystitis or cholelithiasis.. Normal spleen. Normal pancreas; no pancreatitis or pancreatic mass lesions.. Normal bilateral adrenal glands. Normal kidneys without obstructive uropathy. Normal visualized stomach. Normal small intestine. Rectum has a normal appearance. Mild constipation is noted. There is no evidence of acute diverticulitis, colitis, or intestinal obstruction. The appendix is normal in appearance without current evidence of acute appendicitis. It is best visualized in sagittal images 57 through 63, coronal images 59 through 61, and axial images 72 through 76. Normal abdominal aorta. Normal inferior vena cava. Normal retroperitoneum. Normal urinary bladder. There is a large 4.7 cm diameter left ovarian cyst. There is a 1.6 cm residue of a partially ruptured right ovarian cyst with small amount of free fluid in the cul-de-sac. The uterus is retroverted. Normal abdominal wall. Normal osseous structures. CT/Abdomen/Pelvis W IV Cont ONLY IMPRESSION: 1. Presence of a 1.6 cm residue of a partially ruptured right ovarian cyst with a small amount free fluid in the cul-de-sac. 2. Large 4.7 cm diameter left ovarian cyst. 3. No appendicitis, diverticulitis, colitis, or intestinal obstruction. 4. Mild constipation. 5. Normal kidneys without obstructive uropathy. 6. No cholecystitis or pancreatitis. 7. Retroverted uterus. Electronically Signed: Marty Solis MD at 23:32 EDT ,
--- NOTE | 2022-01-22 23:50 | EDS_ITS ---
HPI HPI - GI History of Present Illness Chief Complaint: Abd Pain Informant: patient Abdominal Pain/Flank Pain Onset: Yesterday Context: Sudden Onset (During intercourse with her male significant other) Timing: Continuous Quality: Aching Location: RLQ Current Severity: Moderate Maximum Severity: Moderate Worsened by: Nothing Relieved by: Nothing Nausea/Vomiting/Emesis GI Symptom: Positive for Nausea; Negative for Vomiting Diarrhea/Melena/Hematochezia GI Symptom: Negative for Diarrhea, Melena or Hematochezia Associated Symptoms Associated Symptoms: Negative for Dysuria, Frequency, Hematuria or Urgency Narrative Narrative: Patient started having right lower quadrant pain yesterday during intercourse. It was relatively mild, but they did stop intercourse because of it. Subsequently the pain gradually has worsened, it has not gone away, she states that she felt fine eating today until she got here and started feeling nauseated, no vomiting. No fevers or chills. No history of any abdominal surgeries in the past. PFSH PFS Medical History COVID History of gestational diabetes History of pre-eclampsia Obesity Patent foramen ovale Peptic ulcer Tachycardia Home Medications cholecalciferol (vitamin D3) 100 mcg (4,000 unit) capsule 100 mcg PO DAILY 01/01 10/21 [History Last Taken Unknown] clonazepam 0.5 mg tablet 0.5 mg PO DAILY PRN anxiety 09/25/21 [History Last Taken Unknown] multivitamin 1 tab PO DAILY 09/25/21 [History Last Taken Unknown] zinc gluconate 50 mg tablet 50 mg PO DAILY 09/25/21 [History Last Taken Unknown] dextroamphetamine-amphetamine 5 mg tablet (Adderall) 5 mg PO BID 01/22/22 [History Last Taken Unknown] Allergy/AdvReac Type Severity Reaction Status Date / Time oxycodone [From Percocet] AdvReac Upset Verified 01/22/22 20:10 Stomach Family History Grandmother Myocardial infarction Diabetes Lung cancer Father Diabetes Myocardial infarction Grandfather Lung cancer Surgical History History of tonsillectomy teeth extracted Social History Smoking Status: Current every day smoker tobacco type: cigarettes alcohol intake: current details: occasionally caffeine: Yes what type of physical activity do you participate in: none seatbelt use: always do you feel safe at home: Yes additional social history: - Gilles- Works at [employer] Patient works at [employer] ED Constitutional Constitutional ED: Denies chills or fever(s) Eyes Eyes: Denies change in vision or diplopia ENT ENT ED: Denies rhinorrhea or sore throat Cardiovascular Cardiovascular: Denies chest pain or palpitations Respiratory/Chest Respiratory/Chest: Denies cough or dyspnea Gastrointestinal Gastrointestinal: Reports abdominal pain and nausea; Denies diarrhea or vomiting Genitourinary Genitourinary ED: Denies dysuria or hematuria Musculoskeletal Musculoskeletal: Denies back pain or neck pain Integumentary Denies abscess or rash Neurologic Neurologic: Denies headache(s), paresthesias or weakness Psychiatric Psychiatric: Denies anxiety or suicidal thoughts EXAM Physical Exam Const Vital Signs: 01/22/22 20:07 Temperature 97.9 F Temperature Source Temporal Pulse Rate 129 H Respiratory Rate 16 Blood Pressure 146/94 H Blood Pressure Mean 111 Pulse Ox 99 Oxygen Delivery Method Room Air Positive well nourished and well developed General Appearance ED: well developed and NAD HEENT Reports moist mucous membranes normocephalic and atraumatic Eyes PERRL and EOMs intact bilaterally Neck full ROM and supple Resp normal respiratory effort and clear to auscultation bilaterally Cardio regular rate, regular rhythm and no murmurs GI non-distended GI Narrative: Tender in right side, from the distal right upper quadrant down to the right lower quadrant but the tenderness is more lateral and cranial to McBurney's point, where she is not tender. She is also not tender more distal to this in the pelvis although palpating her suprapubic area is a little uncomfortable. No guarding or rebound anywhere. Negative Rovsing, psoas, obturator signs. Auscultation: normoactive bowel sounds Palpation: soft Back/Spine no CVA tenderness General Back: other FROM Extremity normal to inspection General Extremety ED: Negative for edema, pulses abnormal or tenderness General Extremity: Negative for edema or pulses abnormal Neuro oriented x3, CN's II-XII intact bilaterally and no sensory deficits noted Sensorium / Orientation: awake and alert Motor Exam: strength 5/5 throughout Skin no rashes or lesions noted and no wounds MDM MDM MDM Narrative Medical decision making narrative: Labs show a leukocytosis with a trend toward leftward shift no bandemia. Her is negative, urine is negative. Sent her for CT out of concern for retrocecal appendicitis or other pathology, likely she does not have acute appendicitis and it shows evidence of a recently ruptured right ovarian cyst with a small amount of free fluid in the pelvis. This is reassuring. She is not extremely tender, I do not think she needs an emergent ultrasound to look for torsion. She does also have a 5 cm cyst on the contralateral ovary which is not bothering her right now. I recommend outpatient follow-up with her [facility]UL[facility]EARCHER, she was offered analgesics but states she would be okay with NSAIDs, she was given a dose of Toradol here prior to discharge. Lab Data Attestation: I reviewed the patient's lab results. Labs: Laboratory Results - last 24 hr 01/22/22 01/22/22 01/22/22 20:27 20:34 20:34 WBC 14.9 H RBC 4.51 Hgb 14.4 Hct 41.6 MCV 92.2 MCH 31.9 MCHC 34.6 RDW Std Deviation 42.0 RDW Coeff of Yoan 12.4 Plt Count 274 MPV 9.6 Immature Gran % (Auto) 0.300 Neut % (Auto) 71.9 H Lymph % (Auto) 17.7 L [place] % (Auto) 8.0 Eos % (Auto) 1.8 Baso % (Auto) 0.3 Absolute Neuts (auto) 10.7 H Absolute Lymphs (auto) 2.64 Nucleated RBC % 0 Sodium 136 Potassium 4.0 Chloride 105 Carbon Dioxide 25.0 Anion Gap 6 BUN 9 Creatinine 0.77 Estim Creat Clear Calc 93.93 Est GFR (MDRD) Af Amer 115 Est GFR (MDRD) Non-Af 95 BUN/Creatinine Ratio 11.7 Glucose 98 Calcium 9.2 Serum , Qual Urine Color Yellow Urine Clarity Sl. Cloudy Urine pH 6.0 Ur Specific [place] 1.010 Urine Protein Negative Urine Glucose (UA) Normal Urine Ketones Negative Urine Occult Blood 25 H Urine Nitrite Negative Urine Bilirubin Negative Urine Urobilinogen Normal Ur Leukocyte Esterase Negative Urine RBC 0 SEEN Urine WBC 0-5 SEEN Ur Squamous Epith Cells 0-5 SEEN Urine Bacteria 0 SEEN Urine Mucus 0 SEEN 01/22/22 21:50 WBC RBC Hgb Hct MCV MCH MCHC RDW Std Deviation RDW Coeff of Yona Plt Count MPV Immature Gran % (Auto) Neut % (Auto) Lymph % (Auto) [place] % (Auto) Eos % (Auto) Baso % (Auto) Absolute Neuts (auto) Absolute Lymphs (auto) Nucleated RBC % Sodium Potassium Chloride Carbon Dioxide Anion Gap BUN Creatinine Estim Creat Clear Calc Est GFR (MDRD) Af Amer Est GFR (MDRD) Non-Af BUN/Creatinine Ratio Glucose Calcium Serum , Qual NEGATIVE Urine Color Urine Clarity Urine pH Ur Specific [place] Urine Protein Urine Glucose (UA) Urine Ketones Urine Occult Blood Urine Nitrite Urine Bilirubin Urine Urobilinogen Ur Leukocyte Esterase Urine RBC Urine WBC Ur Squamous Epith Cells Urine Bacteria Urine Mucus Radiography Diagnostic Testing: Clinical Impression(s) from Imaging Studies Abdomen/Pelvis CT 01/22/22 23:06 IMPRESSION: 1. Presence of a 1.6 cm residue of a partially ruptured right ovarian cyst with a small amount free fluid in the cul-de-sac. 2. Large 4.7 cm diameter left ovarian cyst. 3. No appendicitis, diverticulitis, colitis, or intestinal obstruction. 4. Mild constipation. 5. Normal kidneys without obstructive uropathy. 6. No cholecystitis or pancreatitis. 7. Retroverted uterus. Electronically Signed: Marty Solis MD at 23:32 EDT , Discharge Plan Triage Chief Complaint: Abd Pain ED Provider: Alo Maya Dx/Rx/DC Orders Clinical Impression: Rupture of cyst of right ovary, Cyst of left ovary, Abdominal pain, RLQ Instructions: ED Ovarian Cyst Prescriptions: No Action cholecalciferol (vitamin D3) 100 mcg (4,000 unit) capsule 100 mcg (4,000 unit) capsule 100 mcg PO DAILY multivitamin Tablet 1 tab PO DAILY zinc gluconate 50 mg tablet 50 mg PO DAILY clonazepam 0.5 mg tablet 0.5 mg PO DAILY PRN (Reason: anxiety) dextroamphetamine-amphetamine [Adderall] 5 mg Tablet 5 mg PO BID Rx Instructions: administer doses at least 4-6 hours apart Primary Care Provider: Deborah Baltazar Referrals: Deborah Baltazar DO [Primary Care Provider] - Olivia Zarco MD [STAFF PHYSICIAN] - 3-5 Days if not improving Disposition Disposition: Home, Self Care
[2022-01-22] MEDS: Ketorolac 30 MG/ML Syringe IV (23:53)
[2022-01-22 23:54] VITALS: PULSE 100
== END 2022-01-22 23:59 | disposition home or self-care (01) ==
PROVIDERS: Emergency Provider Emergency Medicine; PCP Internal Medicine; Visit Provider Emergency Medicine
DX: N83.201 Unspecified ovarian cyst, right side (principal); N83.202 Unspecified ovarian cyst, left side; R19.7 Diarrhea, unspecified; F17.210 Nicotine dependence, cigarettes, uncomplicated; R11.0 Nausea; Z79.899 Other long term (current) drug therapy
CPT/HCPCS: 74177; 80048; 81001; 84703; 85025; 96374; 96375; 99283; J7030; Q9967; A4216; J2405

== ENCOUNTER → 2022-01-28 | Outpatient (CLI) | payer MEDICAID, SELFPAY ==
--- NOTE | 2022-01-28 16:34 | US_ITS ---
STUDY: COMPLETE ULTRASOUND EXAMINATION OF THE FEMALE PELVIS ON 1652 HOURS ON 01/28/2022 REASON FOR EXAM: 18-year-old female with pelvic pain. LMP: 01/26/2022 TECHNIQUE: A complete non-obstetrical pelvic ultrasound is performed per protocol. TECHNICAL QUALITY: Adequate. COMPARISON: None. FINDINGS: A retroverted uterus is noted measuring 7.3 cm splenic by 6.4 cm in transverse diameter by 4.9 cm in AP diameter. There is a 3 mm thick mildly hyperechoic endometrium. There is no evidence of an intrauterine or ectopic . There is no demonstration of uterine fibroids. A nabothian cyst is noted. Otherwise, the cervix is normal. No intrauterine device is noted in place. The right ovary measures 3.4 cm x 2.0 cm x 1.2 cm. There is a 1 cm diameter simple right ovarian cyst. There is no right ovarian solid mass lesions. There is no right ovarian torsion. The left ovary measures 4.7 cm x 4.1 cm x 2.5 cm. There is a 3.7 cm in diameter complex cyst in the left ovary. There is no evidence of left ovarian solid mass lesions. There is a 5 mm calcification in the left ovary. There is no evidence of left ovarian torsion. There is a mild amount of free fluid in the cul-de-sac. There is no evidence of adnexal masses. The bladder has a normal appearance. US/Transvaginal Non- IMPRESSION: 1. Normal-size retroverted uterus without cystic or solid mass lesions or fibroids. 2. Presence of a 3 mm thick mildly hyperechoic endometrium. No intrauterine or ectopic . 3. Nabothian cyst in the uterine cervix. No other abnormalities of the cervix. 4. Normal size right ovary with a 1 cm simple right ovarian cyst. 5. Mildly enlarged left ovary with 3.7 cm in diameter complex left ovarian cyst. 6. No ovarian solid mass lesions or torsion. 7. No adnexal mass lesions. 8. Mild amount of free fluid in the cul-de-sac. 9. Normal bladder. Electronically Signed: Marty Solis MD at 23:32 EDT ,
--- NOTE | 2022-01-28 16:34 | US_ITS ---
STUDY: COMPLETE ULTRASOUND EXAMINATION OF THE FEMALE PELVIS ON 1652 HOURS ON 01/28/2022 REASON FOR EXAM: 18-year-old female with pelvic pain. LMP: 01/26/2022 TECHNIQUE: A complete non-obstetrical pelvic ultrasound is performed per protocol. TECHNICAL QUALITY: Adequate. COMPARISON: None. FINDINGS: A retroverted uterus is noted measuring 7.3 cm splenic by 6.4 cm in transverse diameter by 4.9 cm in AP diameter. There is a 3 mm thick mildly hyperechoic endometrium. There is no evidence of an intrauterine or ectopic . There is no demonstration of uterine fibroids. A nabothian cyst is noted. Otherwise, the cervix is normal. No intrauterine device is noted in place. The right ovary measures 3.4 cm x 2.0 cm x 1.2 cm. There is a 1 cm diameter simple right ovarian cyst. There is no right ovarian solid mass lesions. There is no right ovarian torsion. The left ovary measures 4.7 cm x 4.1 cm x 2.5 cm. There is a 3.7 cm in diameter complex cyst in the left ovary. There is no evidence of left ovarian solid mass lesions. There is a 5 mm calcification in the left ovary. There is no evidence of left ovarian torsion. There is a mild amount of free fluid in the cul-de-sac. There is no evidence of adnexal masses. The bladder has a normal appearance. US/Pelvic (Non ) IMPRESSION: 1. Normal-size retroverted uterus without cystic or solid mass lesions or fibroids. 2. Presence of a 3 mm thick mildly hyperechoic endometrium. No intrauterine or ectopic . 3. Nabothian cyst in the uterine cervix. No other abnormalities of the cervix. 4. Normal size right ovary with a 1 cm simple right ovarian cyst. 5. Mildly enlarged left ovary with 3.7 cm in diameter complex left ovarian cyst. 6. No ovarian solid mass lesions or torsion. 7. No adnexal mass lesions. 8. Mild amount of free fluid in the cul-de-sac. 9. Normal bladder. Electronically Signed: Marty Solis MD at 23:32 EDT ,
== END | disposition home or self-care (01) ==
LOC: US 16:33
PROVIDERS: PCP Internal Medicine; Referring Provider Obstetrics & Gynecology; Visit Provider Obstetrics & Gynecology
DX: N83.202 Unspecified ovarian cyst, left side (principal); N83.201 Unspecified ovarian cyst, right side; R10.31 Right lower quadrant pain
CPT/HCPCS: 76830; 76856; 93976

== ENCOUNTER → 2022-06-10 | Outpatient (CLI) | payer MEDICAID, SELFPAY ==
[2022-06-10 15:39] LABS: Basophil# 0.04 X10^3/uL; Basophil% 0.5 % (0-1); Eosinophil# 0.21 X10^3/uL; Eosinophils% 2.4 % (0-5); Hematocrit 43.7 % (37-47); Hemoglobin 15.5 g/dL (12.0-15.0); Lymphocyte % 24.8 % (19-41); Mean Corp Hgb Conc 35.5 g/dL (32-36); Mean Corpuscular Hgb 32.4 pg (27.0-32.0); Mean Corpuscular Volume 91.4 fL (81-99); Mean Platelet Vol. 9.9 fl (6.2-12.0); Monocyte# 0.39 X10^3/uL; Monocyte% 4.4 % (0-10); NRBC Flagged by Analyzer 0 % (0-5); Neutrophil % 67.7 % (47-70); Platelet Count 298 K/mm3 (150-450); RBC Distribution Width CV 11.9 % (11.6-14.6); RBC Distribution Width SD 40.1 fl (35.1-43.9); Red Blood Count 4.78 M/mm3 (4.2-5.4); White Blood Count 8.9 K/mm3 (4.4-11.0)
[2022-06-10 15:50] LABS: AST(SGOT) 14 U/L (15-37); Alanine Aminotransfer ALT/SGPT 29 U/L (13-56); Albumin, Serum 4.4 g/dL (3.2-5.0); Alkaline Phosphatase 80 U/L (45-117); Anion Gap 5 (5-15); BUN 7 mg/dL (7-18); BUN/Creat Ratio 9.2 RATIO (10-20); Calcium,Total 9.3 mg/dL (8.5-10.1); Chloride 105 mmol/L (98-107); Creatinine, Serum 0.76 mg/dL (0.55-1.02); EST Glomerular Filtration Rate 96 mL/min (>60); Est Glom Filt Rate - Afr Amer 116 mL/min (>60); Globulin 4.2 g/dL (2.2-4.2); Glucose 116 mg/dL (74-106); Potassium 3.4 mmol/L (3.5-5.1); Protein, Total 8.6 g/dL (6.4-8.2); Sodium Level 139 mmol/L (136-145); Thyroid Stim Hormone (TSH) 0.49 uIU/mL (0.358-3.74); Troponin-I HS < 3 pg/mL (3.0-54.0)
[2022-06-10 16:12] LABS: D-Dimer Quantitative (DVT/PE) 0.34 FEU/ug/m (0.27-0.49)
== END | disposition home or self-care (01) ==
LOC: LABSPEC 15:15
PROVIDERS: PCP Internal Medicine; Visit Provider Internal Medicine
DX: R06.02 Shortness of breath (principal)
CPT/HCPCS: 80053; 84443; 84484; 85025; 85379

== ENCOUNTER → 2022-08-30 | Outpatient (CLI) | payer MEDICAID, SELFPAY ==
[2022-09-02 07:08] LABS: Chlamydia By Nucleic Acid AMP Negative (Negative)
[2022-09-02 18:40] LABS: Gonococcus By Nucleic Acid AMP Negative (Negative)
== END | disposition home or self-care (01) ==
LOC: LABSPEC 14:53
PROVIDERS: PCP Internal Medicine; Referring Provider Nurse Practitioner Women's Health; Visit Provider Nurse Practitioner Women's Health
DX: N89.8 Other specified noninflammatory disorders of vagina (principal)
CPT/HCPCS: 87070; 87205; 87491; 87591

== ENCOUNTER 2023-10-18 16:10 | Emergency (ER) | payer MEDICAID, SELFPAY ==
[2023-10-18 16:11] VITALS: BP 132/97; PULSE 93; RESP 16; TEMP 35.8; O2SAT 96; BMI 30.2
--- NOTE | 2023-10-18 16:31 | EDS_ITS ---
HPI History of Present Illness Chief Complaint: Laceration Informant: patient Onset/Context/Timing Onset: Today Narrative Narrative: Mechanical fall prior to arrival. Playing with her kids running down asphalt falling forward. Scraped her left knee lower legs. No head injuries. No chest wall pain. No upper extremity pain. Tetanus in the last 5 years. No anticoagulants. Laceration to the left knee. Tetanus Immunization: <[address] [facility] Medical History ADHD Conjunctivitis, left eye COVID KELL (generalized anxiety disorder) History of gestational diabetes History of pre-eclampsia Obesity Patent foramen ovale Peptic ulcer Tachycardia Home Medications cholecalciferol (vitamin D3) 100 mcg (4,000 unit) capsule 100 mcg PO DAILY 01/15/20 [History Last Taken Unknown] clonazepam 0.5 mg tablet 0.5 mg PO DAILY PRN anxiety 09/25/21 [History Last Taken Unknown] multivitamin 1 tab PO DAILY 09/25/21 [History Last Taken Unknown] zinc gluconate 50 mg tablet 50 mg PO DAILY 09/25/21 [History Last Taken Unknown] tobramycin 0.3 % eye drops 1 drp ophthalmic (eye) Q2H #5 mL 04/11/23 [Rx Last Taken Unknown] Allergy/AdvReac Type Severity Reaction Status Date / Time oxycodone [From Percocet] AdvReac Upset Verified 10/18/23 16:11 Stomach Family History Grandmother Myocardial infarction Diabetes Lung cancer Father Diabetes Myocardial infarction CVA (cerebral vascular accident) Grandfather Lung cancer Surgical History History of tonsillectomy teeth extracted Social History Smoking Status: Current every day smoker tobacco type: cigarettes alcohol intake: current details: occasionally caffeine: Yes what type of physical activity do you participate in: none seatbelt use: always do you feel safe at home: Yes additional social history: - Gilles- Works at [employer] Patient works at [employer] [facility] ED Constitutional Constitutional ED: Denies chills, fever(s) or sweats Eyes Eyes: Denies change in vision ENT ENT ED: Denies dysphagia or sore throat Cardiovascular Cardiovascular: Denies chest pain, leg edema, palpitations or racing heartbeat Respiratory/Chest Respiratory/Chest: Denies cough, dyspnea or dyspnea on exertion Gastrointestinal Gastrointestinal: Denies abdominal pain, diarrhea, nausea or vomiting Genitourinary Genitourinary ED: Denies dysuria, hematuria or urinary frequency Musculoskeletal Musculoskeletal: Reports extremity pain; Denies back pain or neck pain Integumentary Reports Abrasions; Denies rash or wounds Neurologic Neurologic: Denies headache(s), paresthesias or weakness EXAM Physical Exam Const Vital Signs: 10/18/23 16:11 10/18/23 17:27 Temperature 96.5 F L 97.8 F Temperature Source Temporal Pulse Rate 93 72 Respiratory Rate 16 17 Blood Pressure 132/97 H 117/80 Blood Pressure Mean 108 92 Pulse Ox 96 100 Oxygen Delivery Method Room Air Positive well nourished and well developed Constitutional Narrative: GCS 15. General Appearance ED: well developed and NAD HEENT Reports moist mucous membranes normocephalic and atraumatic Eyes PERRL, EOMs intact bilaterally and conjunctivae normal General Eye ED: Yes normal appearance of both eyes Neck no lymphadenopathy and supple General: Negative for tenderness Chest Wall inspection of chest normal and palpation of chest normal Chest: Negative for tenderness Resp normal respiratory effort and normal air movement Effort and Inspection: symmetric chest movement; Negative for respiratory distress Cardio regular rate, regular rhythm and no murmurs Peripheral Pulses: pulses 2+ throughout GI normal to inspection, nondistended, normoactive bowel sounds and non-tender Palpation: Negative for guarding or rebound tenderness present Back/Spine no CVA tenderness and no thoracic nor lumbar tenderness Extremity Extremity Narrative: Left lower extremity: Superficial abrasions anterior thigh. Horizontal abrasion laceration mid patellar, 1 small full-thickness tear middle of the laceration, no gross foreign body noted. Mid patellar pain. Knee extensor intact. Right lower extremity: Abrasion to the anterior thigh in the suprapatellar region. Nontender. Knee extensor intact. No deformities. Upper extremities: Full range of motion without any tenderness. General Extremety ED: Yes edema and tenderness General Extremity: edema Neuro oriented x3 and no sensory deficits noted Sensorium / Orientation: awake and alert Skin no rashes or lesions noted and no wounds MDM MDM MDM Narrative Medical decision making narrative: Interventions / MDM: Differential diagnosis: Laceration, abrasions Diagnosis considered but do not suspect: Fracture however x-ray negative. No radiopaque foreign bodies. My EKG interpretation: N/A Imaging independently reviewed and interpreted by myself: 2 view left knee xray: No radiopaque foreign bodies, no fracture noted. External documents reviewed: N/A Test considered but not ordered:N/A ED course: Patient declined any medications. X-ray ordered. Knee x-ray with no radiopaque foreign bodies no fracture. Wound was copiously flushed with saline, sutures placed, wound care discussed. Outpatient follow-up with PCP for suture removal. Procedure note: Verbal consent. Normal sterile conditions. Total of 5 cc 1% lidocaine used for local analgesia. Copious flushing 750 cc saline into the wound, no gross foreign bodies noted. Total of 3, 4-0 nylon simple interrupted sutures used with good approximation. Bacitracin dressing was placed by myself. Patient Toller procedure well. Re-evaluation: stable Disposition discussed with patient/family/significant other: Patient Case discussed with consulting clinician: N/A This note was generated with [employer] dictation software. It may contain incorrect words, spelling, and punctuation that were not noted in checking the note before signing. Radiography Diagnostic Testing: Clinical Impression(s) from Imaging Studies Knee X-Ray 10/18/23 16:40 IMPRESSION: No acute radiographic abnormalities. Electronically Signed: Faisal Velásquez MD at 17:21 EDT Reading Location ID and State: [address] [place] [address] Tel , Service support , Discharge Plan Triage Chief Complaint: Laceration Other Complaint: Lower Extremity Injury ED Provider: Fidel Mcdonald Dx/Rx/DC Orders Clinical Impression: Multiple abrasions, Contusion of knee, left, Laceration of knee, left Instructions: ED Abrasion, ED Laceration Extremity Prescriptions: No Action cholecalciferol (vitamin D3) 100 mcg (4,000 unit) capsule 100 mcg (4,000 unit) capsule 100 mcg PO DAILY multivitamin Tablet 1 tab PO DAILY zinc gluconate 50 mg tablet 50 mg PO DAILY clonazepam 0.5 mg tablet 0.5 mg PO DAILY PRN (Reason: anxiety) tobramycin 0.3 % drops 1 drp ophthalmic (eye) Q2H Qty: 5 0RF Rx Instructions: to affected eye(s) while awake for 5 days Primary Care Provider: Anna Campo Referrals: nAna Campo MD [Primary Care Provider] - Deborah Baltazar DO [Med Staff - M1 [employer] Crewman] - 10-14 Days suture removal Activity Restrictions/Additional Instructions: Left knee x-ray with no radiopaque foreign bodies. No fracture. 3 sutures placed. Wound care as discussed. Motrin or Tylenol as needed. Follow-up with sutures likely to be removed in 14 days. Disposition Disposition: Home, Self Care Discharge Date/Time: 10/18/23 17:27
[2023-10-18] MEDS: Lidocaine 1% (20 ml mdv) 20 ML Vial INFILT (16:40)
--- NOTE | 2023-10-18 16:40 | RAD_ITS ---
INDICATION: injury EXAMINATION/TECHNIQUE: X-RAY - LEFT XR Knee Complete 4 Views or More COMPARISON: None. FINDINGS: No acute fracture or malalignment. No significant degenerative changes are seen. No joint effusion. The soft tissues are unremarkable. RAD/Knee 1 or 2 Views IMPRESSION: No acute radiographic abnormalities. Electronically Signed: Faisal Velásquez MD at 17:21 EDT ,
[2023-10-18 17:27] VITALS: BP 117/80; PULSE 72; RESP 17; TEMP 36.6; O2SAT 100
== END 2023-10-18 17:27 | disposition home or self-care (01) ==
PROVIDERS: Emergency Provider Emergency Medicine; PCP Internal Medicine; Visit Provider Emergency Medicine
DX: S81.012A Laceration without foreign body, left knee, initial encounter (principal); W19.XXXA Unspecified fall, initial encounter; F17.210 Nicotine dependence, cigarettes, uncomplicated; S80.02XA Contusion of left knee, initial encounter; S70.312A Abrasion, left thigh, initial encounter
CPT/HCPCS: 12002; 73560; 99284

== ENCOUNTER → 2024-08-13 | Outpatient (CLI) | payer MEDICAID, SELFPAY ==
[2024-08-16 15:07] LABS: HPV APTIMA, High Risk Negative (Negative)
== END | disposition home or self-care (01) ==
LOC: LABSPEC 16:36
PROVIDERS: Referring Provider Nurse Practitioner Women's Health; Visit Provider Nurse Practitioner Women's Health
DX: Z12.4 Encounter for screening for malignant neoplasm of cervix (principal)
CPT/HCPCS: 87624; 88175; G0145